=== PATIENT | female | born 1970 | race African-American/Black ===

== ENCOUNTER 2025-06-14 19:30 | Inpatient (IN) | payer MEDICAID, SELFPAY ==
[2025-06-14] MEDS: oxyCODONE HCl Immed Release 5 MG TABLET PO (22:30)
[2025-06-14 22:55] VITALS: BMI 17.8
[2025-06-14 22:57] VITALS: BP 137/85; PULSE 78; RESP 18; TEMP 36.5; O2SAT 97
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
[2025-06-15 08:32] VITALS: BP 115/73; PULSE 70; RESP 16; TEMP 36.4; O2SAT 97
[2025-06-15 09:12] LABS: Hemoglobin A1C 137.2670 umol/L; Total Hemoglobin (HGBA1C) 3751.1820 umol/L
[2025-06-15 09:29] LABS: Alanine Aminotransferase 24 U/L (0-31); Albumin Level 4.5 g/dL (3.5-5.0); Alkaline Phosphatase 60 U/L (39-117); Anion Gap 12 (12-20); Aspartate Amino Transferase 29 U/L (5-31); Blood Urea Nitrogen 11 mg/dL (9-16); Calcium 9.6 mg/dL (8.4-10.2); Carbon Dioxide 29 mmol/L (22-29); Chloride 107 mmol/L (96-108); Cholesterol 271 mg/dL (<200); Creatinine Clr Calc Pharmacy 75.9; Estimated Glomerular Filt Rate > 60; HDL Cholesterol 108 mg/dL (>40); Potassium 3.7 mmol/L (3.3-5.1); Sodium 144 mmol/L (135-145); Total Protein 7.3 g/dL (6.5-8.0); Triglycerides 66 mg/dL (<150)
[2025-06-15 09:48] LABS: Free T4 (Free Thyroxine) 1.14 ng/dL (0.71-1.85); Thyroid Stimulating Hormone 1.86 uIU/mL (0.32-4.0)
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
--- NOTE | 2025-06-15 15:23 | PC.NURSE ---
Submitted 3 day notice which is up on 06/19/25; Dr Steele notified.
[2025-06-15 15:44] LABS: UPreg QC Valid YES
[2025-06-15 15:47] LABS: Cannabinoid Screen Urine POSITIVE (Not Detect)
[2025-06-15 20:00] VITALS: BP 139/85; PULSE 77; RESP 16; TEMP 36.4; O2SAT 100
--- NOTE | 2025-06-16 | ECG_ITS ---
Test Reason : screening Blood Pressure : */* mmHG Vent. Rate : 74 BPM Atrial Rate : 74 BPM P-R Int : 134 ms QRS Dur : 74 ms QT Int : 382 ms P-R-T Axes : 105 133 106 degrees QTcB Int : 424 ms Suspect limb lead reversal, interpretation assumes no reversal Normal sinus rhythm Right axis deviation Abnormal ECG No previous ECGs available Referred By: Sam Steele Electronically Signed By: Patrick Streeter
--- NOTE | 2025-06-16 03:42 | PC.NURSE ---
Payton approached this public relations writer expressing that she is in pain and can't sleep. this public relations writer offered her PRN pain medication which she refused. The patient has been seen by both the psychiatrist and the hospitalist regarding her pain and per shift report she is to take the medications that are available to her. She then asked for the time, and for a complaint form. I need a form so I can document that you refused to give me pain medication so now I can soni you and this hospital for not treating my pain.
[2025-06-16 08:00] VITALS: BP 152/88; PULSE 67; RESP 16; TEMP 36.8; O2SAT 98
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
[2025-06-16] MEDS: Lidocaine 4 % Cream KIT 1 APPL TOPICAL (18:30)
[2025-06-16 20:00] VITALS: BP 138/72; PULSE 82; RESP 16; TEMP 36.9; O2SAT 98
[2025-06-16] MEDS: Hydrocortisone 2.5 % Rectal Cr 30 GM TUBE 1 APPL PR (20:03)
[2025-06-16] MEDS: OLANZapine 7.5 MG TABLET 15 MG PO (20:03)
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
[2025-06-17 20:00] VITALS: BP 120/59; PULSE 81; RESP 14; TEMP 36.7; O2SAT 95
[2025-06-17] MEDS: OLANZapine 7.5 MG TABLET 15 MG PO (20:06)
[2025-06-18 08:00] VITALS: BP 127/81; PULSE 100; RESP 18; TEMP 36.8; O2SAT 98
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
[2025-06-18 20:00] VITALS: BP 136/80; PULSE 78; RESP 16; TEMP 36.4; O2SAT 100
[2025-06-18] MEDS: OLANZapine 7.5 MG TABLET 15 MG PO (21:14)
[2025-06-19 07:42] VITALS: BP 120/79; PULSE 100; RESP 20; TEMP 36.9; O2SAT 100
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
[2025-06-19 20:00] VITALS: BP 148/76; PULSE 100; RESP 16; TEMP 36.8; O2SAT 100
[2025-06-19] MEDS: OLANZapine 7.5 MG TABLET 15 MG PO (20:04)
[2025-06-20 07:00] VITALS: BMI 19.1
[2025-06-20 07:44] VITALS: BP 154/86; PULSE 95; RESP 18; TEMP 36.4; O2SAT 96
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
[2025-06-20] MEDS: OLANZapine 7.5 MG TABLET 15 MG PO (19:48)
[2025-06-20 20:00] VITALS: BP 119/67; PULSE 87; RESP 16; TEMP 36.6; O2SAT 99
[2025-06-21 08:00] VITALS: BP 127/76; PULSE 82; RESP 16; TEMP 36.9; O2SAT 100
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
[2025-06-21 20:00] VITALS: BP 120/76; PULSE 89; RESP 16; TEMP 37.1; O2SAT 97
[2025-06-21] MEDS: OLANZapine 7.5 MG TABLET 15 MG PO (20:58)
[2025-06-21] MEDS: Hydrocortisone 2.5 % Rectal Cr 30 GM TUBE 1 APPL PR (20:59)
[2025-06-22 07:25] VITALS: BP 120/70; PULSE 90; RESP 18; TEMP 37; O2SAT 99
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
[2025-06-22 20:00] VITALS: BP 122/77; PULSE 100; RESP 16; TEMP 37; O2SAT 98
[2025-06-22] MEDS: OLANZapine 7.5 MG TABLET 15 MG PO (21:14)
[2025-06-22] MEDS: Hydrocortisone 2.5 % Rectal Cr 30 GM TUBE 1 APPL PR (21:16)
[2025-06-23 08:00] VITALS: BP 127/86; PULSE 100; RESP 18; TEMP 36.4; O2SAT 98
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
[2025-06-23 19:40] VITALS: BP 103/57; PULSE 98; RESP 16; TEMP 37.2; O2SAT 99
[2025-06-23] MEDS: OLANZapine 7.5 MG TABLET 15 MG PO (20:10)
[2025-06-24 07:59] VITALS: BP 118/69; PULSE 85; RESP 16; TEMP 37.1; O2SAT 98
[2025-06-24 08:25] LABS: Lithium 0.49 mmol/L (0.60-1.20)
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
[2025-06-24] MEDS: Hydrocortisone 2.5 % Rectal Cr 30 GM TUBE 1 APPL PR (17:14)
[2025-06-24 20:00] VITALS: BP 135/88; PULSE 104; RESP 16; TEMP 36.4; O2SAT 100
[2025-06-24] MEDS: OLANZapine 7.5 MG TABLET 15 MG PO (20:04)
[2025-06-24] MEDS: Lidocaine 4 % Cream KIT 1 APPL TOPICAL (21:53)
--- NOTE | 2025-06-25 04:21 | PC.NURSE ---
retracted 3 day notice on 06/24
[2025-06-25 07:42] VITALS: BP 132/83; PULSE 95; RESP 18; TEMP 36.6; O2SAT 99
[2025-06-25 20:00] VITALS: BP 120/71; PULSE 85; RESP 16; TEMP 36.4; O2SAT 99
[2025-06-25] MEDS: OLANZapine 7.5 MG TABLET 15 MG PO (20:05)
[2025-06-25] MEDS: Hydrocortisone 2.5 % Rectal Cr 30 GM TUBE 1 APPL PR (20:07)
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
--- NOTE | 2025-06-26 00:24 | PC.NURSE ---
3 day notice submitted. UP 07/01
[2025-06-26 08:00] VITALS: BP 133/63; PULSE 90; RESP 18; TEMP 36.4; O2SAT 97
[2025-06-26] MEDS: OLANZapine 7.5 MG TABLET 15 MG PO ×2 (08:07→20:04)
[2025-06-26] MEDS: Hydrocortisone 2.5 % Rectal Cr 30 GM TUBE 1 APPL PR (12:47)
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
[2025-06-26 20:00] VITALS: BP 148/73; PULSE 96; RESP 16; TEMP 36.3; O2SAT 97
[2025-06-27 07:00] VITALS: BMI 19.8
[2025-06-27 08:00] VITALS: BP 113/65; PULSE 99; RESP 16; TEMP 36.4; O2SAT 99
[2025-06-27] MEDS: OLANZapine 7.5 MG TABLET 15 MG PO ×2 (08:23→20:13)
[2025-06-27] MEDS: Hydrocortisone 2.5 % Rectal Cr 30 GM TUBE 1 APPL PR (10:29)
[2025-06-27 12:10] VITALS: BP 103/68; PULSE 77; RESP 18; TEMP 36.6; O2SAT 96
[2025-06-27] MEDS: Lidocaine 4 % Cream KIT 1 APPL TOPICAL (12:23)
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
[2025-06-27 20:00] VITALS: BP 130/81; PULSE 100; RESP 18; TEMP 36.3; O2SAT 98
[2025-06-28 07:50] VITALS: BP 115/72; PULSE 97; RESP 16; TEMP 36.4; O2SAT 97
[2025-06-28] MEDS: OLANZapine 7.5 MG TABLET 15 MG PO ×2 (08:23→20:03)
[2025-06-28 08:41] LABS: Lithium 0.61 mmol/L (0.60-1.20)
[2025-06-28] MEDS: Hydrocortisone 2.5 % Rectal Cr 30 GM TUBE 1 APPL PR (12:34)
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
[2025-06-28 20:15] VITALS: BP 132/68; PULSE 97; RESP 18; TEMP 36.5; O2SAT 100
[2025-06-29 07:58] VITALS: BP 122/68; PULSE 100; RESP 16; TEMP 37.2; O2SAT 100
[2025-06-29] MEDS: OLANZapine 7.5 MG TABLET 15 MG PO ×2 (08:30→20:11)
[2025-06-29] MEDS: Hydrocortisone 2.5 % Rectal Cr 30 GM TUBE 1 APPL PR (16:17)
[2025-06-29 20:10] VITALS: BP 125/78; PULSE 97; RESP 16; TEMP 36.5; O2SAT 100
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
[2025-06-30 08:00] VITALS: BP 115/65; PULSE 91; RESP 18; TEMP 36.4; O2SAT 99
[2025-06-30] MEDS: OLANZapine 7.5 MG TABLET 15 MG PO ×2 (08:24→20:20)
[2025-06-30 20:00] VITALS: BP 121/77; PULSE 96; RESP 16; TEMP 36.3; O2SAT 99
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
[2025-07-01 08:00] VITALS: BP 110/74; PULSE 88; RESP 20; TEMP 36.6; O2SAT 99
[2025-07-01] MEDS: OLANZapine 7.5 MG TABLET 15 MG PO ×2 (08:01→20:02)
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
[2025-07-01 20:00] VITALS: BP 153/83; PULSE 108; RESP 18; TEMP 36.6; O2SAT 100
[2025-07-01] MEDS: Hydrocortisone 2.5 % Rectal Cr 30 GM TUBE 1 APPL PR (21:00)
--- NOTE | 2025-07-01 21:28 | PC.NURSE ---
3 day notice submitted UP 07/04
[2025-07-02] MEDS: Magnesium Hydrox/Alum Hydrox 30 ML ORAL.SUSP PO (00:07)
--- NOTE | 2025-07-02 08:07 | PC.NURSE ---
Pt reports cold sweats and skeletal pain . Afebrile currently. Respiratory paneln negative from 07/01/25. Reported to provider via [facility]. Answer pending.
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
[2025-07-02 20:00] VITALS: BP 121/80; PULSE 109; RESP 18; TEMP 36.8; O2SAT 100
[2025-07-03 07:46] VITALS: BP 116/65; PULSE 101; RESP 18; TEMP 37.2; O2SAT 99
[2025-07-03 07:50] VITALS: BP 116/65; PULSE 101; RESP 18; TEMP 37.2; O2SAT 99
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
[2025-07-03 20:00] VITALS: BP 122/74; PULSE 104; RESP 16; TEMP 36.4; O2SAT 99
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
== END 2025-07-04 09:56 | disposition home or self-care (01) | DRG 750 ==
PROVIDERS: Nurse Practitioner Psychiatric/Mental Health; Admitting Provider Psychiatry & Neurology Psychiatry; Responsible Provider Registered Nurse; Visit Provider Psychiatry & Neurology Psychiatry
DX: F25.0 Schizoaffective disorder, bipolar type (principal); Z91.148 Patient's other noncompliance with medication regimen for other reason; F17.210 Nicotine dependence, cigarettes, uncomplicated; Z59.02 Unsheltered homelessness; Z71.6 Tobacco abuse counseling; Z79.899 Other long term (current) drug therapy
CPT/HCPCS: 36415; 80053; 80061; 80178; 80307; 81025; 83036; 84439; 84443; 87086; 93005

== ENCOUNTER 2025-06-14 19:30 | Outpatient (BNV) | payer MEDICAID, SELFPAY | END 2025-06-16 13:58 | PROVIDERS: Admitting Provider Psychiatry & Neurology Psychiatry; Visit Provider Internal Medicine Cardiovascular Disease | DX: R94.31 Abnormal electrocardiogram [ECG] [EKG] (principal); Z13.6 Encounter for screening for cardiovascular disorders | CPT/HCPCS: 93010 ==

== ENCOUNTER → 2025-06-14 19:30 | Outpatient (BNV) | payer SELFPAY | PROVIDERS: Admitting Provider Psychiatry & Neurology Psychiatry; Visit Provider Student in an Organized Health Care Education/Training Program | DX: Z00.8 Encounter for other general examination (principal) | CPT/HCPCS: 99222 ==

== ENCOUNTER → 2025-06-14 19:30 | Outpatient (BNV) | payer SELFPAY | PROVIDERS: Admitting Provider Psychiatry & Neurology Psychiatry; Visit Provider Psychiatry & Neurology Psychiatry | DX: F25.0 Schizoaffective disorder, bipolar type (principal) | CPT/HCPCS: 90792; 99231; 99232 ==

== ENCOUNTER 2025-07-07 14:24 | Inpatient (IN) | payer MEDICAID, SELFPAY ==
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
[2025-07-07 14:34] VITALS: BP 123/60; PULSE 89; RESP 16; TEMP 37; O2SAT 98; BMI 20.2
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
[2025-07-07 15:14] LABS: Appearance Urine Clear; Glucose Urine UA Negative (Negative); PH 5.5 (5.0-9.0); Specific Gravity - Urine >= 1.030 (1.005-1.025)
[2025-07-07 15:20] LABS: MANUAL DIFF FLAG NO
[2025-07-07 15:20] LABS: Cannabinoid Screen Urine POSITIVE (Not Detect)
[2025-07-07 15:23] LABS: Hematocrit 32.7 % (37.0-47.0); Hemoglobin 11.0 g/dl (12.0-16.0); Imm Gran Abs Auto 0.02 X10*3/uL (0.00-0.03); Imm Gran Pct Auto 0.3 % (0.0-0.4); Lymphocytes Absolute Auto 2.0 X10*3/uL (1.2-4.9); Mean Corpuscular HGB Conc 33.6 g/dl (31.0-35.0); Mean Corpuscular Hemoglobin 33.0 pg (27.0-33.0); Mean Corpuscular Volume 98.2 fL (80.0-98.0); NRBC Abs Auto 0.000 X10*3/uL (0.0-0.012); NRBC Pct Auto 0.0 /100WBC (0.0-0.2); Platelet Count 383 X10*3/uL (160-400); Red Blood Count 3.33 X10*6/uL (4.20-5.50); White Blood Count 6.4 X10*3/uL (4.8-10.8)
[2025-07-07 15:52] LABS: Alanine Aminotransferase 24 U/L (0-31); Albumin Level 3.8 g/dL (3.5-5.0); Alkaline Phosphatase 61 U/L (39-117); Anion Gap 8 (12-20); Aspartate Amino Transferase 30 U/L (5-31); Blood Urea Nitrogen 16 mg/dL (9-16); Calcium 8.5 mg/dL (8.4-10.2); Carbon Dioxide 29 mmol/L (22-29); Chloride 110 mmol/L (96-108); Creatinine Clr Calc Pharmacy 67.9; Estimated Glomerular Filt Rate > 60; Magnesium 2.2 mg/dL (1.6-2.6); Potassium 4.0 mmol/L (3.3-5.1); Sodium 143 mmol/L (135-145); Total Protein 6.1 g/dL (6.5-8.0)
[2025-07-07 16:00] VITALS: BP 122/72; PULSE 70; RESP 14; TEMP 36.8; O2SAT 99
[2025-07-07] MEDS: iohexoL 350 MG/ML 100 ML INFUS..BTL IV (16:09)
[2025-07-07] MEDS: Post Exposure Medication Kit 1 KIT PO (16:12)
[2025-07-07 16:50] LABS: Bacterial Vaginosis PCR NEGATIVE (Negative); Candida Group PCR NOT DETECTED (Not Detect); Candida glab krusei PCR NOT DETECTED (Not Detect); Trichomonas vaginalis PCR NOT DETECTED (Not Detect)
--- NOTE | 2025-07-07 16:51 | PC.NURSE ---
Assumed care of patient at 1651, patient calm and cooperative, moved from ED 7 to 3, offering no complaints to staff.
--- NOTE | 2025-07-07 17:40 | PC.NURSE ---
Pt has rosary in possession, bellows charger assembler aware as well as security.
[2025-07-07 19:57] VITALS: BP 125/82; PULSE 111; RESP 16; TEMP 36.2; O2SAT 96
[2025-07-07 21:09] VITALS: BP 105/60; PULSE 82; RESP 16; TEMP 36.7; O2SAT 100
--- NOTE | 2025-07-08 | ECG_ITS ---
Test Reason : R/O PROLONGED QT Blood Pressure : */* mmHG Vent. Rate : 76 BPM Atrial Rate : 76 BPM P-R Int : 158 ms QRS Dur : 74 ms QT Int : 380 ms P-R-T Axes : 74 36 51 degrees QTcB Int : 427 ms Normal sinus rhythm Normal ECG When compared with ECG of 16-Jun-2025 13:58, Previous ECG had limb leads reversed Referred By: Damaso Goss Electronically Signed By: Patrick Streeter
[2025-07-08 06:00] VITALS: BP 107/69; PULSE 70; RESP 16; TEMP 36.1; O2SAT 100
[2025-07-08 08:43] LABS: HBS Num1 506.25 mIU/mL (0-7.99); HBc Num1 0.05 S/CO (0.00-0.79); HBsAGNum1 0.51 S/CO (0.00-0.99); HIV Num 1 0.06 S/CO (0.00-0.99); Hepatitis A Antibody IgM 0.16 Index (0-0.79); Hepatitis B Surface Antigen Negative (Negative); ~HepC Num1 0.11 S/CO (0.00-0.79); ~Hepatitis A Antibody IgM Nonreactive (Nonreactive); ~Hepatitis B Surface Antibody REACTIVE (Nonreactive); ~Hepatitis C Antibody Nonreactive (Nonreactive)
[2025-07-08] MEDS: Emtricitabin/Tenofovir DF 200/300 TABLET 1 TAB PO (10:16)
[2025-07-08 10:38] LABS: CT PCR Urine NOT DETECTED (Not Detect.); NG PCR Urine NOT DETECTED (Not Detect.)
[2025-07-08 15:10] VITALS: BP 113/74; PULSE 75; RESP 14; TEMP 37.1; O2SAT 100
--- NOTE | 2025-07-08 15:23 | PHA.MEDREC ---
Addendum entered by Jennifer Perdue RPh 07/08/25 16:31: REVIEWED BY PHARMACIST Original Note: Pharmacy Consult ? Medication Reconciliation Pharmacy reviewed med rec done by nursing. Spoke with pt and she verified the med rec. Requested she gets a stronger laxative, Docusate not giving patient relief.
--- NOTE | 2025-07-08 16:51 | MHC.EDTECH ---
Patient stating to this tech that they had their mail sent to this facility during their last admission and is asking if this tech could contact the mailroom personnel to see if their bank card came. This tech spoke with care executive team leader Becca and asked if patients ever have their mail sent to this facility. Becca stated that she would investigate.
[2025-07-08 18:44] VITALS: BMI 20.4
[2025-07-08 18:45] VITALS: BP 127/78; PULSE 76; RESP 15; TEMP 36.4; O2SAT 100
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
[2025-07-08 20:00] VITALS: BP 105/69; PULSE 77; RESP 16
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
--- NOTE | 2025-07-09 | ECG_ITS ---
Test Reason : CP Blood Pressure : */* mmHG Vent. Rate : 76 BPM Atrial Rate : 76 BPM P-R Int : 154 ms QRS Dur : 74 ms QT Int : 370 ms P-R-T Axes : 73 21 44 degrees QTcB Int : 416 ms Normal sinus rhythm Possible Left atrial enlargement Borderline ECG When compared with ECG of 08-Jul-2025 11:03, No significant change was found Referred By: Mirian Andrews Electronically Signed By: Patrick Streeter
[2025-07-09 07:30] VITALS: BP 121/69; PULSE 80; RESP 16; TEMP 36.6; O2SAT 98
[2025-07-09] MEDS: Emtricitabin/Tenofovir DF 200/300 TABLET 1 TAB PO (08:17)
[2025-07-09 08:22] LABS: Lithium 0.28 mmol/L (0.60-1.20)
[2025-07-09 08:29] LABS: Hemoglobin A1C 121.7431 umol/L; Total Hemoglobin (HGBA1C) 3311.4323 umol/L
[2025-07-09 08:35] LABS: Alanine Aminotransferase 21 U/L (0-31); Albumin Level 3.5 g/dL (3.5-5.0); Alkaline Phosphatase 60 U/L (39-117); Anion Gap 10 (12-20); Aspartate Amino Transferase 28 U/L (5-31); Blood Urea Nitrogen 10 mg/dL (9-16); Calcium 8.9 mg/dL (8.4-10.2); Carbon Dioxide 29 mmol/L (22-29); Chloride 107 mmol/L (96-108); Cholesterol 185 mg/dL (<200); Creatinine Clr Calc Pharmacy 93.8; Estimated Glomerular Filt Rate > 60; HDL Cholesterol 62 mg/dL (>40); Potassium 4.4 mmol/L (3.3-5.1); Sodium 142 mmol/L (135-145); Total Protein 5.8 g/dL (6.5-8.0); Triglycerides 78 mg/dL (<150)
[2025-07-09 09:09] LABS: Free T4 (Free Thyroxine) 0.79 ng/dL (0.71-1.85); Thyroid Stimulating Hormone 2.96 uIU/mL (0.32-4.0)
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
[2025-07-09 11:52] LABS: Anion Gap 12 (12-20); Blood Urea Nitrogen 10 mg/dL (9-16); Calcium 8.8 mg/dL (8.4-10.2); Carbon Dioxide 27 mmol/L (22-29); Chloride 107 mmol/L (96-108); Creatinine Clr Calc Pharmacy 80.8; Estimated Glomerular Filt Rate > 60; Potassium 4.6 mmol/L (3.3-5.1); Sodium 141 mmol/L (135-145)
[2025-07-09 12:00] LABS: Troponin-I High Sensitivity 4.2 ng/L (<3.5-17.0)
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
[2025-07-09 20:00] VITALS: BP 116/58; PULSE 88; RESP 16; TEMP 37.7; O2SAT 98
[2025-07-09 21:57] VITALS: TEMP 36.6
[2025-07-10 07:30] VITALS: BP 109/61; PULSE 77; RESP 17; TEMP 36.6; O2SAT 98
[2025-07-10] MEDS: Emtricitabin/Tenofovir DF 200/300 TABLET 1 TAB PO (08:29)
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
--- NOTE | 2025-07-10 14:40 | MHC.SL.SWA ---
Speech Pathologist Impression: Mild to moderate dysphagia across first two phases (oral and pharyngeal), and moderate to significant final phase (esophageal) dysphagia - See GI consultation Risk of Aspiration Due to: Esophageal mass Pulmonary mass Recent new onset of dysphagia, dysarthria and aphasia (reported by pt) Dysphasia Diet Status: Regular diet, thin liquids, RD consultation to support nutritional intake needs Also [facility] neurology consult d/t question of TIAs Liquid Consistency and Strategies for Safe Swallow: Liquid Intake Recommendation: Thin Liquid Intake Strategies: Solid Food Consistency: Dietary Recommendations: Regular Additional Modifications to Solid Foods: Oral Medication Intake: Please contact the pharmacy regarding appropriate crushable or liquid drug formulations that are available whenever modified delivery is recommended. Compensatory Strategies and Precautions to be Taken for Safe Swallow: Supervision While Eating and Drinking for Safe Swallow: None Needed Foods to Avoid: Swallowing Recommended Treatments: Recommendation for Speech: Inpatient Speech Therapy Comment: Pt reports recent hx of coughing on liquids and foods, biting L cheek and voice changes. Pt has been avoiding certain foods and expressed good understanding of esophageal mass, as described to her by MD. Pt uses multiple swallows, alternating consistencies and slow pacing to manage symptoms of dysphagia. Pt did not want to eat during evaluation, extensive education provided on physiology of swallow mechanism, airway protection, the role of the esophagus in the final phase of the swallow (oral, pharyngeal, esophageal), and recommendations for improved safety. GERIATRIC ASSISTANT tx indicated to assist pt with dysphagia management and determine most appropriate compensatory safety strategies/diet modifications. Pt provided with visual referents for dysphagia diet levels and swallow phases. Pt in agreement with [facility] POC. RD notified to request Magic Cup and Boost supplements Frequency/Duration: Daily M-F Date Range for Service Req: Timeline to reassess: Food Preparer Clinican/Clinical Fellow: No Supervisory Statement: I have reviewed and agree with the student/clinical fellow's documentation: N/A Speech Language Pathologist: Brooke Kendrick M.S., CCC-GERIATRIC ASSISTANT
--- NOTE | 2025-07-10 16:03 | MHC.CLN ---
CONSULT ALERTED BY WIRE SPLICER THAT PATIENT CURRENTLY TAKING LIQUIDS ONLY. STARTED MAGIC CUP TID AND ENSURE TID. MAGIC CUP TID PROVIDES 870 KCALS, 27 G PROTEIN. ENSURE TID PROVIDES 1050 KCALS, 60 G PROTEIN. SUPPLEMENTS PROVIDE 1920 KCALS (33.5 KCALS/KG) AND 87 G PROTEIN (1.5 G/KG) IF CONSUMED 100%. RD AVAILABLE NEEDED BY CONSULT.
[2025-07-10 20:00] VITALS: BP 112/64; PULSE 96; RESP 16; TEMP 36.9; O2SAT 99
[2025-07-11 07:00] VITALS: BMI 20.3
[2025-07-11 07:37] VITALS: BP 124/88; PULSE 90; RESP 18; TEMP 36.7; O2SAT 100
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
[2025-07-11] MEDS: Albuterol Sulfate 90 MCG 8 GM INHALER 1 PUFF INHALE (17:42)
[2025-07-11] MEDS: Milk of Magnesia 30 ML ORAL.SUSP PO (19:07)
[2025-07-11 20:00] VITALS: BP 114/68; PULSE 100; RESP 16; TEMP 36.7; O2SAT 99
[2025-07-12 07:05] VITALS: BP 105/63; PULSE 90; RESP 20; TEMP 36.8; O2SAT 99
[2025-07-12] MEDS: Albuterol Sulfate 90 MCG 8 GM INHALER 1 PUFF INHALE ×2 (08:18→21:57)
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
--- NOTE | 2025-07-12 13:13 | MHC.SL.SWA ---
Speech Pathologist Impression: WFL oral and pharyngeal phase Risk of Aspiration Due to: Concern for esophageal mass Dysphasia Diet Status: No change Liquid Consistency and Strategies for Safe Swallow: Liquid Intake Recommendation: Thin Liquid Intake Strategies: Unrestricted Solid Food Consistency: Dietary Recommendations: Regular Additional Modifications to Solid Foods: Recommend GI consult, incidental finding of ? esophageal mass Oral Medication Intake: Whole with Liquid Please contact the pharmacy regarding appropriate crushable or liquid drug formulations that are available whenever modified delivery is recommended. Compensatory Strategies and Precautions to be Taken for Safe Swallow: Sitting Upright (90 deg) Small Bites and Sips Alternate Liquids/Solids Rate of Ingestion Change Supervision While Eating and Drinking for Safe Swallow: Intermittent Supervision Swallowing Recommended Treatments: Compens. Strategy Educat. Recommendation for Speech: Inpatient Speech Therapy Frequency/Duration: Daily M-F Date Range for Service Req: Timeline to reassess: Desk Lieutenant Clinican/Clinical Fellow: No Supervisory Statement: I have reviewed and agree with the student/clinical fellow's documentation: N/A Speech Language Pathologist: Effie Johns M.A., CCC-FELT TIPPING MACHINE TENDER
[2025-07-12 19:42] VITALS: BP 113/63; PULSE 92; RESP 16; TEMP 36.6; O2SAT 99
[2025-07-13] MEDS: Albuterol Sulfate 90 MCG 8 GM INHALER 1 PUFF INHALE ×2 (07:07→11:23)
[2025-07-13 07:39] VITALS: BP 113/70; PULSE 90; RESP 18; TEMP 36.5; O2SAT 98
[2025-07-13] MEDS: guaiFENesin LA 600 MG TAB.ER.12H 1200 MG PO (11:47)
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
[2025-07-13 19:15] VITALS: BP 110/65; PULSE 92; RESP 16; TEMP 36.9; O2SAT 97
[2025-07-13] MEDS: Milk of Magnesia 30 ML ORAL.SUSP PO (22:53)
[2025-07-14 08:00] VITALS: BP 119/75; PULSE 90; RESP 16; TEMP 36.5; O2SAT 99
[2025-07-14] MEDS: Albuterol Sulfate 90 MCG 8 GM INHALER 1 PUFF INHALE ×2 (08:47→16:14)
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
[2025-07-14 19:46] VITALS: BP 125/73; PULSE 113; RESP 16; TEMP 36.9; O2SAT 99
[2025-07-15 07:20] VITALS: BP 103/58; PULSE 94; RESP 18; TEMP 36.8; O2SAT 98
[2025-07-15] MEDS: Albuterol Sulfate 90 MCG 8 GM INHALER 1 PUFF INHALE (08:45)
--- NOTE | 2025-07-15 13:42 | MHC.SL.SWA ---
Speech Pathologist Impression: Esophageal dysphagia Risk of Aspiration Due to: Dysphasia Diet Status: Liquid Consistency and Strategies for Safe Swallow: Liquid Intake Recommendation: Thin Liquid Intake Strategies: Unrestricted Solid Food Consistency: Dietary Recommendations: Regular Additional Modifications to Solid Foods: Recommend GI consult, incidental finding of ? esophageal mass Oral Medication Intake: Whole with Liquid Please contact the pharmacy regarding appropriate crushable or liquid drug formulations that are available whenever modified delivery is recommended. Compensatory Strategies and Precautions to be Taken for Safe Swallow: Sitting Upright (90 deg) Small Bites and Sips Alternate Liquids/Solids Rate of Ingestion Change Supervision While Eating and Drinking for Safe Swallow: Intermittent Supervision Foods to Avoid: Swallowing Recommended Treatments: Compens. Strategy Educat. Recommendation for Speech: Inpatient Speech Therapy Comment: Pt d/c planned for 07/16 with follow-up for GI assessment. SOCIAL WORKER MASTERS reviewed recommendations for pt in dysphagia management, pt verbalizes understanding. SOCIAL WORKER MASTERS consultation can be obtained by MD in the future if needed to address persisting dysphagia/dysarthria. Frequency/Duration: Daily M-F Date Range for Service Req: Timeline to reassess: Pipeline Welder Clinican/Clinical Fellow: No Supervisory Statement: I have reviewed and agree with the student/clinical fellow's documentation: N/A Speech Language Pathologist: Effie Johns M.A., CCC-[employer]STERS
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
[2025-07-15 20:00] VITALS: BP 110/69; PULSE 99; RESP 14; TEMP 36.7; O2SAT 98
[2025-07-15 21:22] LABS: Lithium 0.43 mmol/L (0.60-1.20)
[2025-07-15 21:38] LABS: Alanine Aminotransferase 16 U/L (0-31); Albumin Level 3.8 g/dL (3.5-5.0); Alkaline Phosphatase 61 U/L (39-117); Anion Gap 12 (12-20); Aspartate Amino Transferase 19 U/L (5-31); Blood Urea Nitrogen 26 mg/dL (9-16); Calcium 9.3 mg/dL (8.4-10.2); Carbon Dioxide 26 mmol/L (22-29); Chloride 105 mmol/L (96-108); Creatinine Clr Calc Pharmacy 91.0; Estimated Glomerular Filt Rate > 60; Potassium 4.0 mmol/L (3.3-5.1); Sodium 139 mmol/L (135-145); Total Protein 6.2 g/dL (6.5-8.0)
[2025-07-15 21:52] LABS: Thyroid Stimulating Hormone 6.50 uIU/mL (0.32-4.0)
[2025-07-16 07:24] VITALS: BP 135/75; PULSE 86; RESP 14; TEMP 36.3; O2SAT 99
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
--- NOTE | 2025-07-16 12:12 | PC.NURSE ---
Payton engages easily. Reports she is ready to go. Reports mood is a little depressed, a little anxious however denies SI/HI at this time. Denies perceptual disturbances, no overt psychosis or expressed delusions. Discharge paperwork reviewed with patient reports understanding. Medications reviewed with patient, reports understanding. Medications provided to patient from [facility] pharmacy, home meds returned to patient. Resource booklet provided to patient, crisis numbers provided. All belongings taken with patient.
== END 2025-07-16 11:35 | disposition other institution (70) | DRG 750 ==
LOC: HO.ED 07-08 17:06 → HO.PADLT16 07-08 18:15
PROVIDERS: Nurse Practitioner Family; Physician Assistant; Admitting Provider Nurse Practitioner Psychiatric/Mental Health; Emergency Provider Emergency Medicine; Visit Provider Nurse Practitioner Psychiatric/Mental Health
DX: F25.0 Schizoaffective disorder, bipolar type (principal); R45.851 Suicidal ideations; R45.850 Homicidal ideations; K59.00 Constipation, unspecified; R07.9 Chest pain, unspecified; T76.21XA Adult sexual abuse, suspected, initial encounter; K22.9 Disease of esophagus, unspecified; N85.9 Noninflammatory disorder of uterus, unspecified; Z79.899 Other long term (current) drug therapy
CPT/HCPCS: 36415; 70450; 71260; 72125; 74177; 80048; 80053; 80061; 80178; 80307; 81003; 81515; 83036; 83735; 84439; 84443; 84484; 84702; 85025; 86704; 86706; 86709; 86803; 87340; 87389; 87491; 87591; 92526; 92610; 93005; 99285; J0696; J1885; Q9967; S9485

== ENCOUNTER → 2025-07-07 15:07 | Outpatient (BNV) | payer MEDICAID, SELFPAY | PROVIDERS: Emergency Provider Emergency Medicine Emergency Medical Services; Visit Provider Radiology Diagnostic Radiology | DX: D25.9 Leiomyoma of uterus, unspecified (principal); M51.34 Other intervertebral disc degeneration, thoracic region; M50.30 Other cervical disc degeneration, unspecified cervical region; S09.90XA Unspecified injury of head, initial encounter | CPT/HCPCS: 70450; 71260; 72125; 74177 ==

== ENCOUNTER → 2025-07-08 11:03 | Outpatient (BNV) | payer MEDICAID, SELFPAY | PROVIDERS: Emergency Provider Emergency Medicine Emergency Medical Services; Visit Provider Internal Medicine Cardiovascular Disease | DX: Z13.6 Encounter for screening for cardiovascular disorders (principal) | CPT/HCPCS: 93010 ==

== ENCOUNTER 2025-07-08 17:33 | Outpatient (BNV) | payer MEDICAID, SELFPAY | END 2025-07-09 14:27 | PROVIDERS: Admitting Provider Nurse Practitioner Psychiatric/Mental Health; Emergency Provider Emergency Medicine; Visit Provider Internal Medicine Cardiovascular Disease | DX: R07.9 Chest pain, unspecified (principal) | CPT/HCPCS: 93010 ==

== ENCOUNTER → 2025-07-08 17:33 | Outpatient (BNV) | payer MEDICAID, SELFPAY | PROVIDERS: Admitting Provider Nurse Practitioner Psychiatric/Mental Health; Emergency Provider Emergency Medicine; Visit Provider Nurse Practitioner Psychiatric/Mental Health | DX: F25.0 Schizoaffective disorder, bipolar type (principal) | CPT/HCPCS: 90792 ==

== ENCOUNTER → 2025-07-08 17:33 | Outpatient (BNV) | payer MEDICAID, SELFPAY | PROVIDERS: Admitting Provider Nurse Practitioner Psychiatric/Mental Health; Emergency Provider Emergency Medicine; Visit Provider Nurse Practitioner Family | DX: K22.89 Other specified disease of esophagus (principal) | CPT/HCPCS: 99222 ==

== ENCOUNTER 2025-10-31 20:59 | Inpatient (IN) | payer MEDICAID, OTHER, SELFPAY ==
[2025-10-31 21:17] VITALS: PULSE 78; RESP 18; TEMP 36; O2SAT 100; BMI 19.3
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
--- NOTE | 2025-10-31 22:20 | PC.NURSE ---
pt complaining about not have right pain medication, pt manic, pacing, wanting to speak to [place] supervisor, notified charge Opal, Provider into assess pt, Medicated per mar.
--- OUTSIDE RECORDS SUMMARY | 2025-10-31 22:27 | XMS_ITS | Clinical Summary ---
Author Organization [facility] Address [address] [place] [id number] Care Team Providers Care Putty And Patch Worker Name Role Phone None, Pcp MD Primary Care Provider Unavailabl e Allergies Active Allergy Reactions Criticality Noted Date Comments Prednisone Unknown 06/13/2025 Acetaminophen Unknown 06/13/2025 Family History Medical History Relation Comments Schizophrenia Maternal Aunt Relation Status Comments Maternal Aunt Social History Tobacco Use Types Packs/Day Years Used Date Smoking Tobacco: Never Assessed AUDIT C Answer Date Recorded How often have you had a dri nk containing alcohol, in the past year? 0 06/13/2025 How many standard drinks con taining alcohol have you had on a typical day when you are drinking, in the past year? 0 0 06/13/2025 How often have you had six o r more drinks on one occasion, in the past year? 0 06/13/2025 Comments Unknown Sex and Gender Information Value Date Recorded Sex Assigned at [facility] 06/13/2025 8:00 AM EDT Legal Sex Female 6:59 AM EDT Gender Identity Female 06/13/2025 7:41 AM EDT Sexual Orientation Not on file Last Filed Vital Signs Vital Sign Reading Time Taken Comments Blood Pressure 136/92 06/14/2025 12:00 PM EDT Pulse 73 06/14/2025 12:00 PM EDT Temperature 36.6 C (97.8 F) 06/14/2025 12:00 PM EDT Respiratory Rate 20 06/14/2025 12:0 0 PM EDT Oxygen Saturation 100% 06/14/2025 12: 00 PM EDT Inhaled Oxygen Concentration - - Weight 50.7 kg (111 lb 12.4 oz) 06/13/2025 7:05 AM EDT Height - - Body Mass Index - - Plan of Treatment Health Maintenance Due Date Last Done Comments Lipid Panel 1970 Depression Screening 1982 Hepatitis C Screening 1988 DTaP,Tdap,and Td Vaccines (1 - Tdap) 1989 Pap Smear 1991 Cervical Cancer Screening 2000 HPV/Cotest 2000 Breast Cancer Screening 2010 CT Colonography 2015 Colonoscopy 2015 Colorectal Cancer Screening 2015 FIT 2015 FOBT 2015 Multitarget Stool DNA (Cologuard) 2015 Sigmoidoscopy 2015 Pneumococcal Vaccine: 50+ Ye ars (1 of 1 - PCV) 2020 Zoster Vaccine (1 of 2) 2020 COVID-19 Vaccine ( - 2024-2 6 season) 2025 Influenza Vaccine (#1) 2025 Blood Pressure 06/14/2026 06/14/2025 Meningococcal B Vaccines Aged Out No longer eligible based on patient's age to complete this topic Meningococcal Vaccines Aged Out No lo nger eligible based on patient's age to complete this topic Care Teams Putty And Patch Worker Relationship Specialty Start Date End Date None, Pcp, MD PCP - General 06/13/25
[2025-10-31 22:29] LABS: Calcium 9.4 mg/dL (8.4-10.2); Chloride 109 mmol/L (96-108); Potassium 3.7 mmol/L (3.3-5.1); Sodium 144 mmol/L (135-145)
[2025-10-31 23:37] VITALS: RESP 16
--- NOTE | 2025-10-31 23:38 | PC.NURSE ---
pt is sleeping at this time.
--- NOTE | 2025-11-01 00:55 | PC.NURSE ---
oob bed to bathroom, warm blanket given.
[2025-11-01 03:05] LABS: Cannabinoid Screen Urine POSITIVE (Not Detect)
[2025-11-01 06:00] VITALS: BP 102/61; PULSE 70; O2SAT 97
--- NOTE | 2025-11-01 08:09 | PC.NURSE ---
obtained report from chris, laura presently sleeping, rr equal/non labored, per report pt was medicated with po meds for agitation--had zyprexa, seroquel and atarax, pt to be seen by care team, plan of care ongoing
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
--- NOTE | 2025-11-01 11:35 | PC.NURSE ---
EKG pt refused EKG
[2025-11-01 11:45] LABS: Appearance Urine Clear; Glucose Urine UA Negative (Negative); PH 5.5 (5.0-9.0); Specific Gravity - Urine <= 1.005 (1.005-1.025)
--- NOTE | 2025-11-01 12:47 | PC.NURSE ---
Attempted to do med rec with patient- pt minimally responsive to this RNs questions. Will reattempt at later time. Pt offers no complaints at this time.
[2025-11-01 13:01] VITALS: BMI 19.5
[2025-11-01 13:02] VITALS: BP 115/80; PULSE 70; TEMP 36.7; O2SAT 98
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
[2025-11-01 20:00] VITALS: RESP 15
--- NOTE | 2025-11-01 22:17 | PC.NURSE ---
Pt signed the 3-Day Notice on 11/01/25, which is up on 11/06/25
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
[2025-11-03 07:45] VITALS: BP 138/92; PULSE 92; RESP 14; TEMP 36.4; O2SAT 98
[2025-11-03 09:10] LABS: Alanine Aminotransferase 16 U/L (0-31); Albumin Level 4.5 g/dL (3.5-5.0); Alkaline Phosphatase 61 U/L (39-117); Anion Gap 12 (12-20); Aspartate Amino Transferase 26 U/L (5-31); Blood Urea Nitrogen 11 mg/dL (9-16); Calcium 9.4 mg/dL (8.4-10.2); Carbon Dioxide 27 mmol/L (22-29); Chloride 108 mmol/L (96-108); Cholesterol 221 mg/dL (<200); Creatinine Clr Calc Pharmacy 75.4; Estimated Glomerular Filt Rate > 60; HDL Cholesterol 71 mg/dL (>40); Potassium 3.8 mmol/L (3.3-5.1); Sodium 143 mmol/L (135-145); Total Protein 7.2 g/dL (6.5-8.0); Triglycerides 98 mg/dL (<150)
[2025-11-04 08:00] VITALS: BP 143/91; PULSE 108; RESP 16; TEMP 37.1; O2SAT 99
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
[2025-11-04 20:00] VITALS: BP 139/93; PULSE 103; TEMP 36.3; O2SAT 98
[2025-11-05 08:00] VITALS: BP 149/86; PULSE 89; RESP 18; TEMP 36.4; O2SAT 99
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
== END 2025-11-05 11:44 | disposition home or self-care (01) | DRG 750 ==
LOC: HO.ED 21:43 → HO.PM5 11-01 12:44
PROVIDERS: Admitting Provider Psychiatry & Neurology Psychiatry; Emergency Provider Emergency Medicine; Visit Provider Psychiatry & Neurology Psychiatry
DX: F25.0 Schizoaffective disorder, bipolar type (principal); E23.6 Other disorders of pituitary gland; R45.851 Suicidal ideations; F17.210 Nicotine dependence, cigarettes, uncomplicated; Z59.02 Unsheltered homelessness; Z71.6 Tobacco abuse counseling; R45.850 Homicidal ideations; Z79.899 Other long term (current) drug therapy
CPT/HCPCS: 36415; 80053; 80061; 80143; 80178; 80179; 80307; 81001; 83036; 84443; 85025; 99285; S9485

== ENCOUNTER → 2025-11-01 12:43 | Outpatient (BNV) | payer MEDICAID, SELFPAY | PROVIDERS: Admitting Provider Psychiatry & Neurology Psychiatry; Emergency Provider Emergency Medicine; Visit Provider Nurse Practitioner Family | DX: Z02.2 Encounter for examination for admission to residential institution (principal) | CPT/HCPCS: 99499 ==

== ENCOUNTER → 2025-11-01 12:43 | Outpatient (BNV) | payer OTHER, SELFPAY | PROVIDERS: Admitting Provider Psychiatry & Neurology Psychiatry; Emergency Provider Emergency Medicine; Visit Provider Clinical Nurse Specialist Psychiatric/Mental Health, Adult | DX: F25.0 Schizoaffective disorder, bipolar type (principal) | CPT/HCPCS: 99232 ==